=== PATIENT | male | born 1960 ===

== ENCOUNTER 2022-07-14 07:49 | Outpatient (CLI) | payer OTHER ==
[~2022-07-14 07:49] MED LIST: POLY119PG PO; SURFAK240 M1 PO; ULTRACET PO
== END 2022-07-14 07:58 | disposition home or self-care (01) ==
LOC: SONOGRAMA 07:49
PROVIDERS: ATTEND Urology
DX: Z00.00 Encounter for general adult medical examination without abnormal findings (principal); N20.0 Calculus of kidney

== ENCOUNTER 2022-09-08 09:00 | Outpatient (CLI) | payer OTHER | END 2022-09-08 09:13 | disposition home or self-care (01) | LOC: RAD 09:00 | PROVIDERS: ATTEND Urology | DX: N20.0 Calculus of kidney (principal); R79.89 Other specified abnormal findings of blood chemistry; Z00.00 Encounter for general adult medical examination without abnormal findings ==